=== PATIENT | female | born 1980 | race African-American/Black ===

== ENCOUNTER 2023-05-10 22:48 | Emergency (ER) | payer OTHER ==
[~2023-05-10] VITALS: Ht 149.9 cm; Wt 81.6 kg
[2023-05-10 23:20] VITALS: BP 145/111; PULSE 86; RESP 16; TEMP 97.5; O2SAT 96
[2023-05-11] MEDS ORDERED: ACETAMINOPHEN EXTRA STRENGTH 500 MG TAB PO ONE (02:15)
[2023-05-11] MEDS ORDERED: KETOROLAC 30 MG/ML VIAL IM ONE (02:15)
== END 2023-05-11 02:30 | disposition left against medical advice (07) ==
LOC: MED 22:48
DX: K14.6 Glossodynia (principal); Z79.899 Other long term (current) drug therapy
CPT/HCPCS: 99281